=== PATIENT | female | born 1960 | race Caucasian/White ===

== ENCOUNTER 2018-09-18 08:58 | Emergency (ER) | payer OTHER ==
[2018-09-18 09:22] LABS: URINE BLOOD (Dip) POC Negative (NEGATIVE); URINE GLUCOSE (Dip) POC Negative (NEGATIVE); URINE KETONES (Dip) POC Negative (NEGATIVE); URINE LEUKOCYTE EST (Dip) POC Negative (NEGATIVE); URINE NITRITE (Dip) POC Negative (NEGATIVE); URINE TOTAL PROTEIN POC Negative (NEGATIVE)
[2018-09-18] MEDS: DIAZEPAM 5 MG TAB PO (09:24)
[2018-09-18] MEDS: DEXAMETHASONE 10 MG/ML 1 ML INJ IM (09:25)
[2018-09-18] MEDS: KETOROLAC 60 MG INJ IM (09:25)
== END 2018-09-18 11:03 | disposition home or self-care (01) ==
LOC: FTE 08:58
DX: M54.5 Low back pain (principal)
CPT/HCPCS: 72100; 81003; 96372; 99284-25